=== PATIENT | male | born 1940 | race Caucasian/White ===

== ENCOUNTER → 2023-02-03 18:31 | Outpatient (REF) | payer MEDICARE, OTHER, SELFPAY ==
[2023-02-03 19:42] LABS: Urine Albumin Negative (Neg - Trace); Urine Bilirubin Negative (Negative); Urine Character Clear (Clear); Urine Color Yellow; Urine Glucose 3+ (Negative); Urine Ketone Negative (Negative); Urine Leukocyte Negative (Negative); Urine Nitrite Negative (Negative); Urine Occult Blood Negative (Negative); Urine Specific Gravity 1.015 (<1.030); Urine Urobilinogen Negative (Neg - 1+)
== END ==
LOC: CLAB 18:31
PROVIDERS: ATTENDING PHYSICIAN Emergency Medicine
DX: S80.212A Abrasion, left knee, initial encounter (principal)
CPT/HCPCS: 81003